=== PATIENT | female | born 1960 | race Caucasian/White ===

== ENCOUNTER 2016-11-23 09:57 | Inpatient (IN) | payer BC ==
[~2016-11-23] VITALS: Ht 174 cm; Wt 93.2 kg
[2016-11-23] MEDS ORDERED: VENTAER INH (11:52)
[2016-11-23] MEDS ORDERED: IPRASOL INH (11:52)
[2016-11-23] MEDS ORDERED: METO25TA3 PO (11:52)
[2016-11-23] MEDS ORDERED: TRAM50TA PO (11:52)
[2016-11-23] MEDS ORDERED: PRIL20TA2 PO (11:52)
[2016-11-23] MEDS ORDERED: HYDR-3583 PO (11:52)
[2016-11-23] MEDS ORDERED: CYMB60CA PO (11:53)
[2016-11-23] MEDS ORDERED: MOBI15TA PO (11:53)
[2016-11-23] MEDS ORDERED: ALPR0.25 PO (11:53)
[2016-11-23] MEDS ORDERED: SOMA350T PO (11:53)
[2016-11-24] MEDS ORDERED: ONDANSETRON HCL 4 MG/2 ML VIAL IV PUSH ONE (12:00)
[2016-11-24] MEDS ORDERED: LACTATED RINGER'S 1000 ML INJ 1,000 ML IV ONE (12:00)
[2016-11-24] MEDS ORDERED: PROPOFOL 200 MG/20 ML AMP IV ONE (12:00)
[2016-11-24] MEDS ORDERED: NEOSTIGMINE 3 MG/3 ML SYR IV ONE (12:00)
[2016-11-24] MEDS ORDERED: ePHEDrine/NS 50 MG/5 ML SYR IV ONE (12:00)
[2016-11-24] MEDS ORDERED: ROPIVACAINE 0.5% PF INJ 30 ML VIAL NB ONE (12:06)
[2016-11-24] MEDS ORDERED: LISI-590 PO (12:11)
[2016-11-24 12:13] VITALS: BP 108/71; PULSE 77; RESP 16; TEMP 98.2; O2SAT 97
[2016-11-24] MEDS ORDERED: VANCOMYCIN HCL 1000 MG VIAL ONE (12:14)
[2016-11-24] MEDS ORDERED: SODIUM CHLOR 0.9% 250 ML INJ 250 ML ONE (12:14)
[2016-11-24] MEDS ORDERED: MIDAZOLAM HCL 2 MG/2 ML VIAL ONE (12:41)
[2016-11-24] MEDS ORDERED: FAMOTIDINE 20 MG/2 ML VIAL ONE (12:41)
[2016-11-24] MEDS ORDERED: VANCOMYCIN 1000 MG/NS 250 ML (for <70 kg) IV SCH ×2 (13:00)
[2016-11-24] MEDS ORDERED: ROPIVACAINE PERI-ARTICULAR INJECTION. PERIART SCH ×5 (13:00)
[2016-11-24] MEDS ORDERED: SODIUM CHLORID 0.9% 500 ML IV SCH (13:00)
[2016-11-24] MEDS ORDERED: LACTATED RINGER'S 1000 ML IV SCH (13:00)
[2016-11-24] MEDS ORDERED: METOPROLOL TARTRATE 25 MG TAB PO PRN (13:00)
[2016-11-24] MEDS ORDERED: ceFAZolin 2 GM PREMIX 50 ML IV SCH (13:00)
[2016-11-24] MEDS ORDERED: INSULIN HUMAN REGULAR 1,000 UNITS/10 ML VIAL SQ PRN (13:00)
[2016-11-24] MEDS ORDERED: CHLORHEXIDINE GLUCONATE 4% SOLN 120 ML BTL TOP SCH (13:00)
[2016-11-24] MEDS ORDERED: ceFAZolin INJ 1,000 MG VIAL ONE (14:04)
[2016-11-24] MEDS ORDERED: GENTAMICIN SULFATE 80 MG/2 ML VIAL XX ONE (14:15)
[2016-11-24] MEDS ORDERED: *morphine SULFATE 8 MG/ML PERIprocedure ONLY ONE ×2 (15:57→16:06)
[2016-11-24] MEDS ORDERED: fentaNYL CITRATE 250 MCG/5 ML AMP ONE (15:57)
[2016-11-24] MEDS ORDERED: ALBUTEROL SULFATE 90 MCG/ACT HFA 8 GM INHALER INH PRN (16:00)
[2016-11-24] MEDS: PCA - TOTAL MG MORPHINE DELIVERED PER SHIFT SCH ×2 (16:00→22:00)
[2016-11-24] MEDS ORDERED: NALOXONE HCL 0.4 MG/ML AMP IV PRN (16:00)
[2016-11-24] MEDS ORDERED: SODIUM CHLORIDE 0.9% FLUSH 5 ML FLUSH IVF PRN (16:00)
[2016-11-24] MEDS ORDERED: Post-op Orders (for Pharmacy) MISC XX ONE (16:00)
[2016-11-24] MEDS ORDERED: ACETAMINOPHEN/HYDROcodone 325 MG/10 MG TAB PO PRN ×2 (16:00)
[2016-11-24] MEDS ORDERED: BISACODYL 10 MG SUPP PR PRN (16:00)
[2016-11-24] MEDS ORDERED: ALUMINUM/MAGNESIUM/SIMETH 30 ML CUP PO PRN (16:00)
[2016-11-24] MEDS ORDERED: ALPRAZolam 0.25 MG TAB PO PRN (16:00)
[2016-11-24] MEDS ORDERED: ONDANSETRON HCL 4 MG/2 ML VIAL IVP PRN (16:00)
[2016-11-24] MEDS ORDERED: MAGNESIUM HYDROXIDE SUSP 30 ML CUP PO PRN (16:00)
[2016-11-24] MEDS ORDERED: ZOLPIDEM TARTRATE 5 MG TAB PO PRN (16:00)
[2016-11-24] MEDS ORDERED: WALKER WHEELS/F1 MIS (16:11)
[2016-11-24] MEDS ORDERED: CPMMACHINE (16:11)
--- NOTE | 2016-11-24 16:13 | HHI.FF ---
Face to Face Verification Diagnosis: (1) Osteoarthritis of right knee Physical Therapy Gait training, Transfer training, bed to chair Knee: Total knee, Protocol: Right Canvas Knee Splint: Other (while sleeping at night ) Right LE Weight Bearing: WB as tolerated Left LE Weight Bearing: WB as tolerated Nursing RN Days per Week: 5 x Week(s): 2 Nursing: Dressing changes (clean incision with alcohol and apply dry sterile dressing daily ) Additional Instructions Pt/INR q Monday and , call or text results to Maren CASTRO [phone] Goal INR 1.5-1.8 I have seen patient Marisela Pritchett on 11/24/16. My clinical findings support the need for the requested home health care services because: High risk of falls I certify that my clinical findings support that this patient is homebound because: Post-op weakness Unsteady gait/balance Vijay Clemons MD Nov 24, 2016 16:13
[2016-11-24] MEDS ORDERED: DO NOT ADM ANY ANTICOAGULANT DRUGS XX PRN (16:30)
--- NOTE | 2016-11-24 16:34 | RADRPT ---
EXAM DATE/TIME: 11/24/2016 16:05 [place] COMPARISON: KNEE LEFT COMPLETE (4VWS), May 05, 2016, 11:57. INDICATIONS : Post Op, Right Knee, Total Knee Replacement. MEDICAL HISTORY : None. SURGICAL HISTORY : None. ENCOUNTER: Initial ACUITY: 1 day PAIN SCORE: 10/10 LOCATION: Right Knee. FINDINGS: The patient is post right annuloplasty. Orthopedic hardware is in excellent position. Surgical drain and skin sandro remain. CONCLUSION: 1. Uncomplicated right knee arthroplasty. Jase Taylor MD on November 24, 2016 at 16:32 Board Certified Radiologist. This report was verified electronically.
[2016-11-24] MEDS: LACTATED RINGER'S 1000 ML INJ 1,000 ML IV SCH (18:24)
[2016-11-24] MEDS: MORPHINE SULFATE 30 MG/30 ML PCA IV SCH ×2 (19:14→21:09)
[2016-11-24 19:50] VITALS: BP 110/58; PULSE 92; RESP 17; TEMP 97.2; O2SAT 97
[2016-11-24] MEDS: METOPROLOL TARTRATE 25 MG TAB PO SCH (21:00)
[2016-11-24] MEDS: SODIUM CHLORIDE 0.9% FLUSH 5 ML FLUSH IVF SCH (21:12)
--- NOTE | 2016-11-24 21:44 | MP ---
cc: MAGDA JETER ALBERT DATE OF SURGERY 11/24/16 PREOPERATIVE DIAGNOSIS 1. Right knee moderately severe tricompartmental osteoarthritis. POSTOPERATIVE DIAGNOSIS 1. Right knee moderately severe tricompartmental osteoarthritis. PROCEDURE Right total knee arthroplasty-cemented Biomet Vanguard. SURGEON Charlette Clemons MD DRIVER MEDIC Maren Del Castillo PA-C SPECIMENS None. ESTIMATED BLOOD LOSS Less than 50 cc. COMPLICATIONS None. ANESTHESIA General endotracheal anesthesia. DRAINS Two. TOURNIQUET TIME 60 minutes at 250 mmHg. CONDITION Stable. PLAN OF ACTIVITY As per orders. PROCEDURE My sales assistant entertainment and media Maren Del Castillo PA-C, was present for the entire surgical case. She was medically necessary for the entire case because of the complexity of the case and to facilitate the performance of the procedure. The CASH SURRENDER CALCULATOR was at the back table and not a skilled set for this case to manipulate the instruments e.g. the multiple different soft tissue retractors, trial implants, permanent implants including bone cement. The patient was brought to the operating room and had satisfactory anesthesia by the department of anesthesia. The right lower extremity was prepped and draped in the usual sterile manner. The extremity was exsanguinated by elevation. The tourniquet was inflated to 250 mmHg. Small anterior exposure of the knee was made. Primary capsulotomy was performed. Inspection of the knee revealed the patient to have mild to moderate degree of synovitis. The patient was found to have severe osteoarthritis around the medial compartment, moderate degree of osteoarthritis around the lateral compartment and patellofemoral compartment. The remaining portion of the medial and lateral meniscus were removed. The anterior cruciate ligament was removed. The posterior cruciate ligament was preserved. Using the Biomet Vanguard total knee arthroplasty system IM guide was used for the distal femoral cut and 5 degrees of valgus to accept a 65 mm femoral component. The extramedullary guide was used for the proximal tibial cut and this was to accept a 79 mm tibial component. Trial reduction made with 10 mm insert. Patient found to have excellent alignment of the knee, both flexion/extension. Undersurface of the patella was removed to accept a 31 mm three-pronged patellar prosthesis. All trial components were removed. Preparation was made for cementing. Two packages of Biomet high viscosity cement was used. First the tibial component was cemented which was a 79 tibial component and then the femoral component which was a 75 mm femoral component. A 10 x 79 plastic insert was then used. The 31 mm three-pronged patellar prosthesis was cemented to the patella. All excess bone cement was removed. The bone cement was allowed to harden for 13 minutes. The knee was irrigated with 4000 cc of sterile saline antibiotic solution. The knee also was injected with 100 cc of local anesthesia to provide postoperative analgesia and hemostasis. The trial plastic was removed and the 10 x 79 polyethylene plastic was assembled onto the tibial tray with appropriate locking mechanism. The tourniquet was deflated. All bleeders were then coagulated. The wound itself was dry. The wound was closed over two Hemovac drains hooked up to Autovac system. The capsule and quadriceps mechanism was repaired with multiple #2 Tycron sutures, subcuticular layers with 0 Vicryl and 2-0 Vicryl. Skin was approximated with multiple skin sandro. Xeroform, gauze, sterile dressings were applied. The patient tolerated the procedure well and went to the recovery room in stable and satisfactory addition. MD MARI Cade/ASAH /3:53 PM /9:26 PM PRANAV
[2016-11-25] VITALS (8 sets, daily range): BP systolic 92–120; BP diastolic 53–71; PULSE 82–101; RESP 16–17; TEMP 97–99.1; O2SAT 92–100
[2016-11-25] MEDS: MORPHINE SULFATE 30 MG/30 ML PCA IV SCH (03:14)
[2016-11-25] MEDS: RESP: ALBUTEROL 2.5 MG/IPRATROPIUM 0.5 MG NEB (SCH) INH ×6 (04:13→19:34)
[2016-11-25] MEDS: LACTATED RINGER'S 1000 ML INJ 1,000 ML IV SCH ×2 (04:24→16:54)
[2016-11-25 05:14] LABS: HEMATOCRIT 31.2 % (35.0-46.0); REVIEW FLAG FINAL
[2016-11-25 05:17] LABS: PROTHROMBIN TIME - PATIENT 11.4 SEC (9.8-11.6)
[2016-11-25] MEDS: PCA - TOTAL MG MORPHINE DELIVERED PER SHIFT SCH (05:49)
--- NOTE | 2016-11-25 07:05 | PD.ORT.PN ---
Subjective Subjective Remarks pt doing very well with her right knee, no complaints this morning Objective Vitals Vital Signs Date Time Temp Pulse Resp B/P Pulse Ox O2 Delivery O2 Flow Rate FiO2 11/25/16 05:49 18 11/25/16 04:00 97.3 82 17 99/63 99 11/25/16 03:14 17 11/25/16 01:11 97 21 11/25/16 00:30 97.1 86 17 92/56 92 11/24/16 22:00 18 11/24/16 21:09 18 11/24/16 19:50 97.2 92 17 110/58 97 11/24/16 19:14 15 11/24/16 19:00 97.8 96 16 110/69 99 Nasal Cannula 3 11/24/16 18:30 111 16 110/69 98 Nasal Cannula 3 11/24/16 18:00 85 15 121/68 98 Nasal Cannula 3 11/24/16 17:30 83 17 102/67 99 Nasal Cannula 3 11/24/16 17:00 80 16 113/68 99 Nasal Cannula 3 11/24/16 16:30 77 16 123/72 99 Nasal Cannula 3 11/24/16 16:15 82 15 138/80 99 Nasal Cannula 3 11/24/16 16:00 76 15 141/84 98 Nasal Cannula 3 11/24/16 15:45 77 16 148/76 94 Nasal Cannula 3 11/24/16 15:30 66 16 133/76 99 Nasal Cannula 3 11/24/16 15:15 75 15 152/83 99 Nasal Cannula 3 11/24/16 15:02 98.5 75 15 161/84 99 Nasal Cannula 3 11/24/16 12:13 98.2 77 16 108/71 97 I/O 11/24/16 11/24/16 11/24/16 11/25/16 11/25/16 11/25/16 07:00 15:00 23:00 07:00 15:00 23:00 Intake Total 2533 ml 604 ml Output Total 1475 ml 1445 ml Balance 1058 ml -841 ml Intake Oral 240 ml IV Total 993 ml 604 ml Other 1300 ml Output Urine Total 850 ml 1375 ml Drainage Total 425 ml 70 ml Estimated Blood Loss 200 ml # Bowel Movements 0 Result Diagram: 11/25/16 0408 Other Results Laboratory Tests Test 11/25/16 04:08 Prothrombin Time 11.4 SEC (9.8-11.6) Prothromb Time International 1.0 RATIO Ratio Imaging Last 24 hours Impressions Knee X-Ray 11/24/16 1554 Signed Impressions: Service Date/Time: , November 24, 2016 16:05 - CONCLUSION: 1. Uncomplicated right knee arthroplasty. Jase Taylor MD Objective Remarks also seen by Dr. 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
[2016-11-25] MEDS ORDERED: ACETAMINOPHEN/HYDROcodone 325 MG/7.5 MG TAB PO PRN (07:15)
[2016-11-25] MEDS: METOPROLOL TARTRATE 25 MG TAB PO SCH ×2 (07:48→20:08)
[2016-11-25] MEDS: SODIUM CHLORIDE 0.9% FLUSH 5 ML FLUSH IVF SCH ×2 (07:51→20:07)
[2016-11-25] MEDS ORDERED: CARISOPRODOL 350 MG TAB PO SCH ×2 (09:00→21:00)
[2016-11-25] MEDS ORDERED: LISINOPRIL 10 MG TAB PO SCH ×2 (09:00→21:00)
[2016-11-25] MEDS ORDERED: PANTOPRAZOLE SOD 20 MG DELAYED RELEASE TAB PO SCH ×2 (09:00→21:00)
[2016-11-25] MEDS ORDERED: NON-FORMULARY DRUG (Omeprazole Magnesium (Prilosec) 20 MG) PO SCH (09:00)
[2016-11-25] MEDS ORDERED: DULoxetine HCl DR 60 MG CAP PO SCH ×2 (09:00→21:00)
[2016-11-25] MEDS: ACETAMINOPHEN/HYDROcodone 325 MG/7.5 MG TAB PO PRN ×4 (10:03→22:36)
[2016-11-25] MEDS ORDERED: WARFARIN SOD 5 MG TAB PO SCH (16:00)
--- NOTE | 2016-11-25 17:41 | PD.CONS ---
HPI Service [facility] Consult Requested By Dr. Vijay Clemons Reason for Consult Opinion and recommendations on treatment of patient's hypertension, COPD. Primary Care Physician Vijay Clemons MD Diagnoses: History of Present Illness 56-year-old white female with a history of COPD, hypertension, peptic ulcer disease was had long-term history of right knee pain due to osteoarthritis and failed on conservative outpatient treatment. She likely underwent a right total knee arthroplasty yesterday with Dr. Vijay Clemons. She does report that postoperatively, her pain has been controlled well. She does admit to smoking a little over half a pack of cigarettes on a daily basis. She has not had any shortness of breath and is currently using her inhalers at bedside. She does report she needs a new nebulizer machine upon discharge to home. She does use nebulizer medications as needed for situations where she has increased shortness of breath. She denies any history of recent black stools or black tarry stools. She's been on Prilosec for her previous history of peptic ulcer disease. She reports she understands importance of anticoagulation at this point, the benefits of anticoagulation postoperatively outweighs the risk of rebleeding of her history of peptic ulcers which has seen stable. Review of Systems Constitutional: DENIES: Fatigue, Fever, Chills, Change in appetite Endocrine: DENIES: Heat/cold intolerance Eyes: DENIES: Blurred vision, Eye pain, Vision loss Ears, nose, mouth, throat: DENIES: Hearing loss, Nasal discharge, Throat pain, Ear Pain, Sinus Pain Respiratory: DENIES: Cough, Shortness of breath Cardiovascular: DENIES: Chest pain, Palpitations, Dyspnea on Exertion, Lower Extremity Edema Gastrointestinal: DENIES: Abdominal pain, Black stools, Bloody stools, Constipation, Diarrhea, Nausea, Vomiting Genitourinary: DENIES: Dysuria Musculoskeletal: COMPLAINS OF: Joint pain (right knee), DENIES: Muscle aches, Stiffness Integumentary: DENIES: Rash Hematologic/lymphatic: DENIES: Bruising, Lymphadenopathy Immunologic/allergic: DENIES: Eczema Neurologic: DENIES: Headache, Localized weakness, Paresthesias Psychiatric: DENIES: Anxiety, Depression, Suicidal Ideation Past Family Social History Allergies: Coded Allergies: Codeine (Verified Allergy, Severe, throat swelling, 11/23/16) Past Medical History Osteoarthritis COPD Hypertension Peptic ulcer disease Cystitis Past Surgical History Tonsillectomy cholecystectomy partial hysterectomy Right knee arthroscope Reported Medications Albuterol inhaler 2 puffs every 4-6 hours as needed for shortness of breath Soma 300 mg by mouth daily at bedtime DuoNeb as needed for shortness of breath Lisinopril 10 mg by mouth daily at bedtime Nexium obit 50 mg by mouth daily Prilosec 20 mg by mouth daily Tramadol 50 mg every 8 hours as needed for pain. Family History Father had COPD and kidney disease and heart disease along with CHF Social History Does smoke a little over half a pack of cigarettes on daily basis. Does not drink alcohol. Physical Exam Vital Signs Vital Signs Date Time Temp Pulse Resp B/P Pulse Ox O2 Delivery O2 Flow Rate FiO2 11/25/16 16:00 97.3 90 16 101/53 98 11/25/16 12:00 97.0 86 16 100/59 100 11/25/16 08:00 98 21 11/25/16 08:00 97.4 87 16 116/61 100 11/25/16 07:40 Room Air 11/25/16 05:49 18 11/25/16 04:00 97.3 82 17 99/63 99 11/25/16 03:14 17 11/25/16 01:11 97 21 11/25/16 00:30 97.1 86 17 92/56 92 11/24/16 22:00 18 11/24/16 21:09 18 11/24/16 19:50 97.2 92 17 110/58 97 11/24/16 19:14 15 11/24/16 19:00 97.8 96 16 110/69 99 Nasal Cannula 3 11/24/16 18:30 111 16 110/69 98 Nasal Cannula 3 11/24/16 18:00 85 15 121/68 98 Nasal Cannula 3 Physical Exam GENERAL: This is a well-nourished, well-developed patient, in no apparent distress. SKIN: No rashes, ecchymoses or lesions. Cool and dry. HEAD: Atraumatic. Normocephalic. No temporal or scalp tenderness. EYES: Pupils equal round and reactive. Extraocular motions intact. No scleral icterus. No injection or drainage. ENT: Nose without bleeding, purulent drainage or septal hematoma. Throat without erythema, tonsillar hypertrophy or exudate. Uvula midline. Airway patent. NECK: Trachea midline. No JVD or lymphadenopathy. Supple, nontender, no meningeal signs. CARDIOVASCULAR: Regular rate and rhythm RESPIRATORY: Clear to auscultation. Breath sounds equal bilaterally. No wheezes , rales, or rhonchi. GASTROINTESTINAL: Abdomen soft, non-tender, nondistended. No hepato-splenomegaly , or palpable masses. No guarding. MUSCULOSKELETAL: Extremities without clubbing, cyanosis, or edema. Right knee bandage clean dry intact. NEUROLOGICAL: Awake and alert to person place time and situation. Cranial nerves II through XII intact. Motor and sensory grossly within normal limits. Normal speech. Laboratory Laboratory Tests Test 11/25/16 04:08 Hemoglobin 10.6 Hematocrit 31.2 Prothrombin Time 11.4 Prothromb Time International 1.0 Ratio Result Diagram: 11/25/16 0408 Imaging Last Impressions Knee X-Ray 11/24/16 1554 Signed Impressions: Service Date/Time: November 16:05 - CONCLUSION: 1. Uncomplicated right knee arthroplasty. Jase Taylor MD Assessment and Plan Assessment and Plan 1. Status post operative day #1 right total knee arthroplastycontinue postoperative care, pain control, rehabilitation per orthopedic surgery 2. Hypertension history, at this time recommend restarting lisinopril. Further recommendations some blood pressure trends. Vasotec IV when necessary will be written for any uncontrolled blood pressure. 3. History of peptic ulcer disease disease, chroniccontinue PPI. Patient understands the benefits of starting anticoagulation postoperatively outweighs the risk of bleeding. 4. DVT prophylaxis risks and benefits of anticoagulation discussed with patient today. Initiate Coumadin per orthopedic surgery Amber Hamlin MD Nov 25, 2016 17:41
[2016-11-25] MEDS ORDERED: NEBULIZER1 MI1 (17:43)
[2016-11-25] MEDS ORDERED: ENALAPRILAT 1.25 MG/ML VIAL IV PRN (17:45)
[2016-11-25] MEDS ORDERED: RESP: ALBUTEROL 2.5 MG/IPRATROPIUM 0.5 MG NEB (PRN) NEB (18:15)
[2016-11-26] VITALS: BP 133/76; PULSE 98; RESP 16; TEMP 98; O2SAT 97
[2016-11-26] MEDS: RESP: ALBUTEROL 2.5 MG/IPRATROPIUM 0.5 MG NEB (SCH) INH ×3 (01:05→09:19)
[2016-11-26] MEDS: ACETAMINOPHEN/HYDROcodone 325 MG/7.5 MG TAB PO PRN ×3 (02:49→10:59)
[2016-11-26 05:32] LABS: PROTHROMBIN TIME - PATIENT 10.8 SEC (9.8-11.6)
--- NOTE | 2016-11-26 07:27 | HHI.PR ---
Subjective Remarks In nad. Pain is fairly controlled by meds. No cp, sob, n/v/d. Passed gas. Objective Vitals Vital Signs Date Time Temp Pulse Resp B/P Pulse Ox O2 Delivery O2 Flow Rate FiO2 11/26/16 00:00 98.0 98 16 133/76 97 11/25/16 20:00 99.1 101 16 120/71 97 11/25/16 19:36 94 11/25/16 18:40 Room Air 11/25/16 16:00 97.3 90 16 101/53 98 11/25/16 12:00 97.0 86 16 100/59 100 11/25/16 08:00 98 21 11/25/16 08:00 97.4 87 16 116/61 100 11/25/16 07:40 Room Air I/O 11/25/16 11/25/16 11/25/16 11/26/16 11/26/16 11/26/16 07:00 15:00 23:00 07:00 15:00 23:00 Intake Total 604 ml 1720 ml 480 ml 600 ml Output Total 1445 ml Balance -841 ml 1720 ml 480 ml 600 ml Intake Oral 1720 ml 480 ml 600 ml IV Total 604 ml Output Urine Total 1375 ml Drainage Total 70 ml # Voids 4 1 3 # Bowel Movements 0 Result Diagram: 11/25/16 0408 Imaging Last Impressions Knee X-Ray 11/24/16 1554 Signed Impressions: Service Date/Time: November 16:05 - CONCLUSION: 1. Uncomplicated right knee arthroplasty. Jase Taylor MD Objective Remarks GENERAL: This is a well-nourished, well-developed patient, in no apparent distress. SKIN: No rashes, ecchymoses or lesions. Cool and dry. HEAD: Atraumatic. Normocephalic. No temporal or scalp tenderness. EYES: Pupils equal round and reactive. Extraocular motions intact. No scleral icterus. No injection or drainage. ENT: Nose without bleeding, purulent drainage or septal hematoma. Throat without erythema, tonsillar hypertrophy or exudate. Uvula midline. Airway patent. NECK: Trachea midline. No JVD or lymphadenopathy. Supple, nontender, no meningeal signs. CARDIOVASCULAR: Regular rate and rhythm RESPIRATORY: Clear to auscultation. Breath sounds equal bilaterally. No wheezes , rales, or rhonchi. GASTROINTESTINAL: Abdomen soft, non-tender, nondistended. No hepato-splenomegaly , or palpable masses. No guarding. MUSCULOSKELETAL: Extremities without clubbing, cyanosis, or edema. Right knee bandage clean dry intact. NEUROLOGICAL: Awake and alert to person place time and situation. Cranial nerves II through XII intact. Motor and sensory grossly within normal limits. Normal speech. A/P Assessment and Plan 1. Status post right total knee arthroplastycontinue postoperative care, pain control, rehabilitation per orthopedic surgery 2. Hypertension history, at this time recommend restarting lisinopril. Further recommendations some blood pressure trends. Vasotec IV when necessary will be written for any uncontrolled blood pressure. 3. History of peptic ulcer disease disease, chroniccontinue PPI. Patient understands the benefits of starting anticoagulation postoperatively outweighs the risk of bleeding. 4. DVT prophylaxis risks and benefits of anticoagulation discussed with patient today. Initiate Coumadin per orthopedic surgery Medically stable, can DC from hospitalist standpoint. Maritza Carlisle MD Nov 26, 2016 07:27
[2016-11-26 08:00] VITALS: BP 118/69; PULSE 88; RESP 17; TEMP 96.5; O2SAT 94
[2016-11-26 09:19] VITALS: O2SAT 96
[2016-11-26] MEDS: SODIUM CHLORIDE 0.9% FLUSH 5 ML FLUSH IVF SCH (09:39)
[2016-11-26] MEDS: METOPROLOL TARTRATE 25 MG TAB PO SCH (09:39)
--- NOTE | 2016-11-26 11:12 | PD.ORT.PN ---
Subjective Post Op Day #: 2 Subjective Remarks doing well. knee is painful but tolerable. Objective Vitals Vital Signs Date Time Temp Pulse Resp B/P Pulse Ox O2 Delivery O2 Flow Rate FiO2 11/26/16 09:19 96 11/26/16 08:00 96.5 88 17 118/69 94 11/26/16 07:00 Room Air 11/26/16 00:00 98.0 98 16 133/76 97 11/25/16 20:00 99.1 101 16 120/71 97 11/25/16 19:36 94 11/25/16 18:40 Room Air 11/25/16 16:00 97.3 90 16 101/53 98 11/25/16 12:00 97.0 86 16 100/59 100 I/O 11/25/16 11/25/16 11/25/16 11/26/16 11/26/16 11/26/16 07:00 15:00 23:00 07:00 15:00 23:00 Intake Total 604 ml 1720 ml 480 ml 600 ml Output Total 1445 ml Balance -841 ml 1720 ml 480 ml 600 ml Intake Oral 1720 ml 480 ml 600 ml IV Total 604 ml Output Urine Total 1375 ml Drainage Total 70 ml # Voids 4 1 3 # Bowel Movements 0 Result Diagram: 11/25/16 0408 Other Results Laboratory Tests Test 11/26/16 05:02 Prothrombin Time 10.8 SEC (9.8-11.6) Prothromb Time International 1.0 RATIO Ratio Imaging Last 24 hours Impressions Knee X-Ray 11/24/16 1554 Signed Impressions: Service Date/Time: November 16:05 - CONCLUSION: 1. Uncomplicated right knee arthroplasty. Jase Taylor MD Objective Remarks in bed, nad, using cpm dressing c/d/i +NVI no calf tenderness, neg homans Assessment & Plan Ortho Post Op Day #: 2 Problem List: Assessment and Plan POD # 2 s/p R TKA low dose Coumadin for DVT prop- check INR on discharge for dosage [place] rx in chart PT-WBAT cleared for d/c home today with doc choice [facility] orthopedically stable Bill Badillo Nov 26, 2016 11:12
[2016-11-26 12:00] VITALS: BP 131/74; PULSE 95; RESP 18; TEMP 96.7; O2SAT 96
--- NOTE | 2016-12-12 08:36 | HHI.DS ---
Discharge Summary Admission Date Nov 24, 2016 at 11:23 Discharge Date: Nov 26, 2016 Admitting Diagnosis Right knee osteoarthritis Diagnosis: (1) Osteoarthritis of right knee Diagnosis: Principal Procedures R TKA Brief History This is a 56 year old female patient who has continued right knee pain. Patient has failed all non-operative conservative care with her knee. She has undergone right knee arthroscopic surgery. She has failed exercise, assistive ambulation, NSAIDs, analgesics and multiple steroid injections. She states she is unable to work because of her knee pain, unable to do her ADLS. Imaging x-rays of the right knee show severe medial compartment osteoarthritis with joint space narrowing PE at Discharge in bed, nad, using cpm dressing c/d/i +NVI no calf tenderness, neg [place] [facility] Course Patient underwent satisfactory anaesthesia by the dept of anaesthesia. She underwent right total knee arthroplasty on the date of admission. She was treated with low dose Coumadin night before surgery and will continue to be treated with low dose coumadin for four weeks post operatively. She was started with physical therapy, full weight bearing ambulation on pod #1. She was also started with CPM machine. She was seen and followed by medical during her stay. She progressed well and was discharged home with home health therapy and nursing on pod #2. Condition at time of discharge was stable. Pt Condition on Discharge: Stable Discharge Disposition: Disch w/ Home Health Serv Discharge Instructions Diet Instructions: Coumadin (Warfarin) Diet Activities You Can Perform: Weight Bearing as Maren Levin Dec 12, 2016 08:36
== END 2016-11-26 14:22 | disposition home health service (06) | DRG 470 ==
LOC: HSDI 11-24 11:23 → N06A 11-24 19:14
PROVIDERS: ADMIT Orthopaedic Surgery Orthopaedic Surgery of the Spine; ATTEND Orthopaedic Surgery Orthopaedic Surgery of the Spine
PROC: 3E0T3CZ (ICD-10-PCS; 2016-11-24)
PROC: 0SRC0J9 Replacement of Right Knee Joint with Synthetic Substitute, Cemented, Open Approach (ICD-10-PCS; principal; 2016-11-24 13:33)
DX: M17.11 Unilateral primary osteoarthritis, right knee (principal); I10 Essential (primary) hypertension; J44.9 Chronic obstructive pulmonary disease, unspecified; F17.210 Nicotine dependence, cigarettes, uncomplicated; Z87.11 Personal history of peptic ulcer disease; Z88.5 Allergy status to narcotic agent
CPT/HCPCS: 36430; 73560; 85014; 85018; 85610; 86077; 86850; 86870; 86900; 86901; 86902; 86920; 86922; 94150; 94640; 94664; C1776; J0171; J0690; J0735; J1580; J1885; J2250; J2270; J2405; J2710; J2795; J3010; J3370; J7050; J7120; L1830